=== PATIENT | male | born 1980 | race Caucasian/White ===

== ENCOUNTER 2018-12-14 20:43 | Emergency (ER) | payer OTHER, SELFPAY ==
[2018-12-14 20:44] VITALS: BP 134/66; PULSE 112; RESP 18; TEMP 36.5; O2SAT 99; BMI 26.3
--- NOTE | 2018-12-14 20:55 | EKG12_ITS ---
Test Reason : LEG EDEMA Blood Pressure : / mmHG Vent. Rate : 092 BPM Atrial Rate : 092 BPM P-R Int : 150 ms QRS Dur : 100 ms QT Int : 332 ms P-R-T Axes : 012 045 033 degrees QTc Int : 410 ms Normal sinus rhythm Normal ECG Confirmed by RICA CROFT, LUIS ([id number]), dictionary editor MARIA A PHAM ([id number] on 12/18/2018 8:59:59 AM Referred By: PATY Confirmed By:LUIS STRAUSS MD
--- NOTE | 2018-12-14 20:57 | ED.VISSUMM ---
- ER Visit Summary Date of Service: 12/14/18 Chief Complaint: [] Cold pulseless right leg since last night History of Present Illness: The patient is a 38 M [] has no past history but a family history for protein S deficiency indicates went to sleep last night had some discomfort in the right groin his leg felt numb he woke in the legs seem persistently numb like it was on fire and then he noticed discoloration and mottling and he presents today for evaluation. 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 otherwise Physical Examination: [] vs signs are within normal range General, no distress resting comfortably HEENT is generally unremarkable The neck is supple no adenopathy Cardiovascular, regular rate and rhythm Lungs, clear bilateral Abdomen, soft nontender Extremities, right lower extremity is mottled there is poor to very sluggish capillary refill to all areas the right foot is cold he is able dorsi and plantar flex he can bend at the knee can move the toes there is no skin breakdown, there are no palpable pulses to the femoral area or dorsalis pedis foot area he has strong pulse to the left femoral area, no skin breakdown no signs of infection Neurologic, awake alert answering questions appropriately moving all 4 extremities Test Results: [] Emergency Department Course and Treatment: [] EKG shows a sinus rhythm nothing acute given all the above we were concerned with possibly an acute arterial occlusion, given all the above screening labs are obtained we start IV heparin, we contacted [facility] vascular surgery they have agreed to accept the patient in transfer to that facility through the emergency department for further management discussed with the patient he agrees Treatment Plan: [] Disposition: [] Transfer to [facility] for immediate vascular surgery evaluation Impression: [] Pulseless right lower extremity acute arterial insufficiency This note was generated with [employer] dictation software. It may contain incorrect words, spelling, and punctuation that were not noted in review of the chart prior to signing ED Disposition - Plan for ED Patient: Referrals: Care Physician,No Primary [Primary Care Provider] -
--- NOTE | 2018-12-14 21:06 | RAD_ITS ---
STUDY: X-RAY CHEST REASON FOR EXAM: Male, 38 years old. Chest pain and cough TECHNIQUE: Single AP portable view of the chest. COMPARISON: None. FINDINGS: The lungs are clear and expanded. There is no demonstrated pleural abnormality. Normal size heart. Normal mediastinum and lexi. Normal visualized pulmonary arteries. Normal visualized aortic arch and descending thoracic aorta. Normal visualized thoracic spine. Normal visualized ribs, clavicles, and shoulders. There is no demonstrated abnormality of the visualized soft tissue structures of the upper abdomen. RAD/Chest 1 View (Portable) IMPRESSION: Normal x-ray examination of the chest. Electronically Signed: Stanley Nuñez MD at 21:25 EDT , Service support ,
[2018-12-14 21:12] LABS: Absolute Lymphocyte Count 1.09 X10^3/ul (0.83-4.51); Absolute Neutrophil Count 4.8 X10^3/uL (2.0-7.7); Basophil# 0.02 X10^3/uL; Basophil% 0.3 % (0-1); Eosinophil# 0.12 X10^3/uL; Eosinophils% 1.8 % (0-5); Hematocrit 44.5 % (40-54); Hemoglobin 15.6 g/dl (13.0-16.5); Lymphocyte # 1.09 X10^3/ul (4.0); Lymphocyte % 16.7 % (19-41); Mean Corp Hgb Conc 35.1 g/gl (32-36); Mean Corpuscular Hgb 29.7 pg (27.0-32.0); Mean Corpuscular Volume 84.6 fL (80-94); Mean Platelet Vol. 10.9 fl (6.2-12.0); Monocyte# 0.48 X10^3/uL; Monocyte% 7.3 % (0-10); Neutrophil # 4.83 X10^3/uL (2.7-7.7); Neutrophil % 73.9 % (47-70); Platelet Count 224 K/mm3 (150-450); RBC Distribution Width CV 11.8 % (11.6-14.6); RBC Distribution Width SD 36.3 fl (35.1-43.9); Red Blood Count 5.26 M/mm3 (4.6-6.2); White Blood Count 6.5 K/mm3 (4.4-11.0)
[2018-12-14 21:16] LABS: POSITIVE COUNT NO; POSITIVE DIFFERENTIAL NO; POSITIVE MORPHOLOGY NO
--- NOTE | 2018-12-14 21:20 | ED.DCSUM_ITS ---
- ER Visit Summary Date of Service: 12/14/18 Chief Complaint: [] Cold pulseless right leg since last night History of Present Illness: The patient is a 38 M [] has no past history but a family history for protein S deficiency indicates went to sleep last night had some discomfort in the right groin his leg felt numb he woke in the legs seem persistently numb like it was on fire and then he noticed discoloration and mottling and he presents today for evaluation. 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 Physical Examination: [] vs signs are within normal range General, no distress resting comfortably HEENT is generally unremarkable The neck is supple no adenopathy Cardiovascular, regular rate and rhythm Lungs, clear bilateral Abdomen, soft nontender Extremities, right lower extremity is mottled there is poor to very sluggish capillary refill to all areas the right foot is cold he is able dorsi and plantar flex he can bend at the knee can move the toes there is no skin breakdown, there are no palpable pulses to the femoral area or dorsalis pedis foot area he has strong pulse to the left femoral area, no skin breakdown no signs of infection Neurologic, awake alert answering questions appropriately moving all 4 extremities Test Results: [] Emergency Department Course and Treatment: [] EKG shows a sinus rhythm nothing acute given all the above we were concerned with possibly an acute arterial occlusion, given all the above screening labs are obtained we start IV heparin, we contacted [facility] vascular surgery they have agreed to accept the patient in transfer to that facility through the emergency department for further management discussed with the patient he agrees Treatment Plan: [] Disposition: [] Transfer to [facility] for immediate vascular surgery evalua tion Impression: [] Pulseless right lower extremity acute arterial insufficiency This note was generated with [employer] dictation software. It may contain incorrect words, spelling, and punctuation that were not noted in review of the chart prior to signing ED Disposition - Plan for ED Patient: Referrals: Care Physician,No Primary [Primary Care Provider] -
[2018-12-14 21:21] LABS: Prothrombin Time (Protime)PT. 12.5 SECONDS (11.7-14.9)
[2018-12-14] MEDS: Ondansetron 4 MG/2 ML Vial IV (21:32)
[2018-12-14] MEDS: morphine 8 MG/ML Syringe IV (21:33)
[2018-12-14] MEDS: Heparin Injection (Vial) 5,000 UNIT/ML VIAL 6000 UNIT IV (21:36)
[2018-12-14] MEDS: HEPARIN/D5w 25,000 UNITS 25,000 UNITS/250 ML IV.SOLN. 12 UNITS IV (21:36)
[2018-12-14 21:40] LABS: Anion Gap 8 (5-15); BUN 9 mg/dL (7-18); BUN/Creat Ratio 8.1 RATIO (10-20); Calcium,Total 9.2 mg/dL (8.5-10.1); Chloride 96 mmol/L (98-107); Creatinine, Serum 1.11 mg/dL (0.70-1.30); EST Glomerular Filtration Rate 79 mL/min (>60); Est Glom Filt Rate - Afr Amer 96 mL/min (>60); Estimated Creatinine Clearance 97.99 ml/min; Glucose 548 mg/dL (74-106); Potassium 4.3 mmol/L (3.5-5.1); Sodium Level 130 mmol/L (136-145)
--- NOTE | 2018-12-14 21:43 | ED.RN ---
lab called critical on this pt BGL of [id number], dr smith notified, nfo's
[2018-12-14] MEDS: 0.9% Normal Saline 1,000 ML 1000 ML IV (21:50)
[2018-12-14 22:01] VITALS: BP 114/77; PULSE 101; RESP 16; O2SAT 97
== END 2018-12-14 22:03 | disposition short-term general hospital (02) ==
LOC: ED 21:07
PROVIDERS: Emergency Provider Emergency Medicine
DX: I73.9 Peripheral vascular disease, unspecified (principal); R20.9 Unspecified disturbances of skin sensation
CPT/HCPCS: 71045; 80048; 84484; 85025; 85610; 85730; 93005; 96361; 96374; 96375; 99285; J7030; A4216; J2405